=== PATIENT | female | born 1945 | race African-American/Black ===

== ENCOUNTER 2016-09-01 07:30 | Emergency (ER) | payer OTHER ==
[2016-09-01] MEDS ORDERED: CATAPRES PO ONE (08:06)
[2016-09-01 08:08] LABS: MANUAL DIFF NEEDED? NO
[2016-09-01 08:09] LABS: BASO% 0.2 % (0.0-0.8); EOS# 0.12 X1000 (0.0-0.7); EOS% 2.3 % (0.0-10.0); HEMATOCRIT 33.8 % (37.0-47.0); LYMPH# 1.03 X1000 (1.2-3.4); LYMPH% 19.4 % (20.5-51.1); MCH 28.4 PG (27-31); MCHC 32.5 g/dL (33-37); MCV 87.1 FL (81-99); MONO# 0.44 X1000 (0.11-0.59); MONO% 8.3 % (1.7-9.3); MPV 9.2 FL (7.4-10.4); NEUT% 69.8 % (42.2-75.2); PLT 219 X1000 (130-400); RBC 3.88 XMIL (4.2-5.4)
--- NOTE | 2016-09-01 08:17 | EKG Report ---
Test Performed on : 09/01/2016 07:52:30 AM Test Reason : htn with recent mi 06/05 Blood Pressure : / mmHG Vent. Rate : 067 BPM Atrial Rate : 067 BPM P-R Int : 176 ms QRS Dur : 076 ms QT Int : 370 ms P-R-T Axes : 023 -09 -24 degrees QTc Int : 390 ms Normal sinus rhythm. Inferior infarct , age undetermined Anterior infarct , age undetermined Abnormal ECG No previous ECGs available Unconfirmed Result
[2016-09-01 08:28] LABS: ALBUMIN 4.1 g/dL (3.5-5.0); CALCIUM 9.6 mg/dL (8.8-10.2); POTASSIUM 4.4 mmol/L (3.5-5.1); TOTAL BILIRUBIN 0.3 mg/dL (0.20-1.00); TOTAL PROTEIN 7.7 g/dL (6.3-8.3)
--- NOTE | 2016-09-01 09:02 | PROVIDER DOCUMENTATION ---
HPI-General Adult - General Chief Complaint: B/P Problems Stated Complaint: B/P PROB Time Seen by Provider: 09/01/16 07:40 Source: patient Allergies/Adverse Reactions: Patient Allergies Allergy/AdvReac Type Severity Reaction Status Date / Time ascorbic acid AdvReac Unknown Verified 09/01/16 07:36 [From [facility]] cholecalciferol (vitamin D3) AdvReac Unknown Verified 09/01/16 07:36 [From [facility]] folic acid [From [facility]] AdvReac Unknown Verified 09/01/16 07:36 vitamin B complex no.4 * AdvReac Unknown Verified 09/01/16 07:36 [From [facility]] zinc oxide [From [facility]] AdvReac Unknown Verified 09/01/16 07:36 Home Medications: Apixaban [Eliquis] 2.5 mg PO BID 08/30/16 Aspirin EC 81 mg PO DAILY 08/30/16 Bisacodyl [Dulcolax] 10 mg AK DAILY PRN 08/30/16 Cyanocobalamin/Folic Acid [B-12 1,000 Mcg Sub Tablet] 2,500 mcg SL DAILY Levothyroxine Sodium [Synthroid] 50 microgm PO DAILY 08/30/16 Metoprolol Tartrate 25 mg PO BID 08/30/16 Omeprazole 40 mg PO DAILY 08/30/16 Pravastatin Sodium 80 mg PO HS 08/30/16 Vit B Complex No.10/Folic Acid [B-Complex 100 Cr Tablet] 1 tab PO DAILY Vitamin E 400 unit PO DAILY 08/30/16 - History of Present Illness -Gen Adult Nature of Presenting Problems: Reports to er with cc of elevated blood pressure since last night. Pt reports she continued to check her BP and it was running 160's/100's. Denied cp,sob,leg edema,n,v. Hx of open heart sx on and cartoidectomy left sided. Quality of Pain: reports: none Severity: reports: moderate Onset/Duration: reports: last night Timing: reports: still present Similar Symptoms Previously?: No Recently seen or treated by another doctor?: No Review of Systems - Adult - REVIEW OF SYSTEMS - ADULT Constitutional: denies: chills, fever, fatique Eyes: reports: no symptoms reported Ears, Nose, Mouth & Throat: reports: no symptoms reported Cardiovascular: reports: see HPI. denies: chest pain, irregular heart rate, orthopnea, syncope Respiratory: reports: no symptoms reported Gastrointestinal: reports: no symptoms reported Genitourinary: reports: no symptoms reported Musculoskeletal: denies: bone pain, joint pain, joint swelling, neck pain Integumentary: reports: no symptoms reported Neurological: reports: no symptoms reported Psychiatric: reports: no symptoms reported Endocrine: reports: no symptoms reported Hematologic/Lymphatic: reports: no symptoms reported Allergic/Immunologic: reports: no symptoms reported All Other Systems: Reviewed and Negative Past History - Adult - PAST MEDICAL HISTORY-ADULT Review of Records: reports: Nursing Assessment Review Major Childhood Illnesses: reports: denies history Cardiovascular: reports: CAD, HTN, hyperlipidemia Endocrine/Immune: reports: thyroid disorder - PRIOR SURGERIES/PROCEDURES Surgical/Procedure History: reports: CABG, orthopedic (extremity), other (left cartoidectomy) - IMMUNIZATION STATUS Childhood Immunizations: See Nurse Assessment Flu Vaccine: See Nurse Assessment - FAMILY HISTORY Family History: reviewed, not pertinent - SOCIAL HISTORY Smoking: denies Substance Use: none/never Physical Exam-General - PHYSICAL EXAM-ADULT Initial Vital Signs Reviewed: Yes - CONSTITUTIONAL General Appearance: appears well, alert, no apparent distress - EYES Eyes: PERRL/EOMI, pink conjunctivae - HEAD, EARS, NOSE, MOUTH & THROAT HENMT: normocephalic/atraumatic, moist mucous membranes, normal ENT inspection - NECK Neck: non-tender, full range of motion, supple, normal inspection, other (well healed surgical scar left neck) - RESPIRATORY Respiratory: chest non-tender, lungs clear, normal breath sounds - CARDIOVASCULAR Cardiovascular: normal peripheral pulses, regular rate, rhythm, no edema, no gallop, no JVD - CHEST (BREASTS) Chest/Breast: other (well healed surgical scar left chest) - GASTROINTESTINAL (ABDOMEN) Abdominal Exam: normal bowel sounds, non tender, soft - LYMPHATIC Lymphatic: no adenopathy - MUSCULOSKELETAL Back Exam: normal inspection, no CVA tenderness, no vertebral tenderness Extremity: normal range of motion, non-tender, normal gait - SKIN Integumentary: normal color, normal turgor, warm/dry - NEUROLOGIC Neurologic: grossly normal, no motor/sensory deficits - PSYCHIATRIC Psych/Mental Status: normal mood/affect, normal thought content, normal thought process, oriented x 3 Progress - PLAN OF CARE/RESULTS Progress/Plan/Lab Results: Orders Category Date Time Status CHEST-2 VIEWS [RAD] Stat Exams 09/01/16 07:49 Taken CBC WITH DIFF [HEME] Stat Lab 09/01/16 08:05 Completed CK PROFILE [SP CHEM] Stat Lab 09/01/16 08:05 Completed COMPREHENSIVE METABOLIC PANEL [CHEM] Stat Lab 09/01/16 08:05 Completed TROPONIN T Stat Lab 09/01/16 08:05 Completed Clonidine [Catapres] Med 09/01/16 08:06 Discontinued 0.2 mg PO NOW ONE EKG [EKG] Stat Ther 09/01/16 07:49 Draft Vital Signs - 24 hr 09/01/16 09/01/16 09/01/16 07:33 08:04 09:10 Temperature 99.3 F Pulse Rate 78 66 Respiratory 18 16 Rate Blood Pressure 188/95 157/90 116/72 O2 Sat by Pulse 95 96 Oximetry Laboratory Tests 09/01/16 09/01/16 09/01/16 08:05 08:05 08:05 WBC 5.31 RBC 3.88 L Hgb 11.0 L Hct 33.8 L MCV 87.1 MCH 28.4 MCHC 32.5 L RDW Std Deviation 15.1 H Plt Count 219 MPV 9.2 Immature Gran % (Auto) 0.0 Neut % (Auto) 69.8 Lymph % (Auto) 19.4 L [place] % (Auto) 8.3 Eos % (Auto) 2.3 Baso % (Auto) 0.2 Immature Gran # (Auto) 0.00 Neut # (Auto) 3.71 Lymph # (Auto) 1.03 L [place] # (Auto) 0.44 Eos # (Auto) 0.12 Baso # (Auto) 0.01 Sodium 135 L Potassium 4.4 Chloride 99 Carbon Dioxide 25 Anion Gap 11 BUN 19 Creatinine 1.1 H Estimated GFR/1.73 m2 49 BUN/Creatinine Ratio 17 Glucose 100 Calculated Osmolality 272 Calcium 9.6 Total Bilirubin 0.30 AST 21 ALT 10 Alkaline Phosphatase 68 Creatine Kinase Troponin T < 0.010 Total Protein 7.7 Albumin 4.1 Globulin 4.0 Albumin/Globulin Ratio 1.0 09/01/16 08:05 WBC RBC Hgb Hct MCV MCH MCHC RDW Std Deviation Plt Count MPV Immature Gran % (Auto) Neut % (Auto) Lymph % (Auto) [place] % (Auto) Eos % (Auto) Baso % (Auto) Immature Gran # (Auto) Neut # (Auto) Lymph # (Auto) [place] # (Auto) Eos # (Auto) Baso # (Auto) Sodium Potassium Chloride Carbon Dioxide Anion Gap BUN Creatinine Estimated GFR/1.73 m2 BUN/Creatinine Ratio Glucose Calculated Osmolality Calcium Total Bilirubin AST ALT Alkaline Phosphatase Creatine Kinase 98 Troponin T Total Protein Albumin Globulin Albumin/Globulin Ratio - REASSESSMENT Reassessment #1 Time Reassessed: 09:15 (BP 116/72) - EKG 1 Time of EKG reading by physician:: 07:52 EKG Read and Signed by:: Martha Green EKG Interpretation (*Must complete 3 of following elements*): Abnormal (nsr; inferior infarct age undetermined;anterior infarct age undetermined; abnormal ECG) Rate: 67 Rhythm: nsr - XRAY 1 XRAY: Bilateral XRAY Study: Chest Impression: Normal XRAY Interpretation: nad Departure - Departure Time of Disposition Order: 09:24 DIAGNOSIS: Hypertension Qualifiers: Hypertension type: unspecified secondary hypertension Qualified Code(s): I15.9 - Secondary hypertension, unspecified Disposition: HOME 01 Certified Medical Emergency: Emergent Condition: Stable Additional Instructions: Follow up with pcp ED Follow Up Instructions: You have been treated by a care provider in the Emergency Department. These instructions are being provided to you so you can have an understanding of how to care for yourself upon discharge. Upon discharge from the Emergency Department, you are responsible for making arrangements for follow-up care by a physician of your choice. Take all prescribed medications as directed. Return to the Emergency Department immediately for any new or worsening symptoms. You may call the Physician Referral phone number at [phone] to obtain a list of Physicians who are taking new patients. Referrals: Kike Cuellar MD [Primary Care Provider] - Attestation - Scribe Verification/Attestation Scribe:: Ronnie Yang Acting as Scribe for:: Martha Green Scribe documention review:: This chart was documented by a scribe and accurately reflects the service the provider performed and the decisions made by the provider.
[2016-09-01 09:39] VITALS: BP 115/71
--- NOTE | 2016-09-01 10:46 | Diag Imaging Result Document ---
PROCEDURE NAME: CHEST-2 VIEWS - 09/01/2016 PA AND LATERAL RADIOGRAPH OF THE CHEST: COMPARISON: None available. FINDINGS: There is trace linear scarring versus subsegmental atelectasis at the left lower lung zone. The lungs are essentially clear, otherwise. There is no definite pleural fluid collection. Median sternotomy wires and pericardial clips are noted suggesting prior CABG. Cardiac silhouette and central vascular are grossly unremarkable, otherwise. IMPRESSION: Suggestion of minimal left lower lung zone scarring versus atelectasis. No definite acute pathology, otherwise.
== END 2016-09-01 09:39 | disposition home or self-care (01) ==
LOC: P.ED 07:30
DX: I15.9 Secondary hypertension, unspecified (principal); I10 Essential (primary) hypertension; R94.31 Abnormal electrocardiogram [ECG] [EKG]; I25.10 Atherosclerotic heart disease of native coronary artery without angina pectoris; E78.5 Hyperlipidemia, unspecified; E07.9 Disorder of thyroid, unspecified; Z95.1 Presence of aortocoronary bypass graft; Z79.899 Other long term (current) drug therapy; Z79.82 Long term (current) use of aspirin
CPT/HCPCS: 36415; 71020; 80053; 82550; 84484; 85025; 93005; 99284